=== PATIENT | male | born 1990 | race Asian ===

== ENCOUNTER 2017-04-16 13:30 | Emergency (ER) | payer OTHER ==
[2017-04-16 13:46] VITALS: BP 117/72; PULSE 95; TEMP 100.1; BMI 24.0
[2017-04-16] MEDS ORDERED: IBUPROFEN 600 MG TABLET (FP) PO ONE ×2 (14:14→14:24)
--- NOTE | 2017-04-16 14:37 | PDOC ---
History of Present Illness - General Chief Complaint: Cold Symptoms Stated Complaint: BODY ACHES, FEVER Time Seen by Provider: 04/16/17 14:14 - History of Present Illness Initial Comments: 04/16/17 14:36 CHIEF COMPLAINT: fever, body aches HISTORY OF PRESENT ILLNESS: 26 yo M with no PMH presents to fast track with fever x 2 days and body aches. Patient states he went for a run two days ago and when he returned home he suddenly felt body aches and "really tired." He states he has taken a few doses of Tylenol, last dose this afternoon around 1 pm. Patient denies any cough, sneezing, runny nose, sore throat, neck stiffness , vomiting, diarrhea. PAST MEDICAL HISTORY: Denies past medical history FAMILY HISTORY: Denies SOCIAL HISTORY: Denies tobacco, alcohol, illicit drug use. SURGICAL HISTORY: Denies ALLERGIES: No known drug allergies REVIEW OF SYSTEMS General/Constitutional: Denies fever or chills. Denies weakness, weight change. HEENT: Denies change in vision. Denies ear pain or discharge. Denies sore throat. Cardiovascular: Denies chest pain or shortness of breath. Respiratory: Denies cough, wheezing, or hemoptysis. Gastrointestinal: Denies nausea, vomiting, diarrhea or constipation. Denies rectal bleeding. Genitourinary: Denies dysuria, frequency, or change in urination. Musculoskeletal: Body aches to knees and lower back. Skin and breasts: Denies rash or easy bruising. Neurologic: Denies headache, vertigo, loss of consciousness, or loss of sensation. PHYSICAL EXAM General Appearance: Well-appearing, appropriately dressed. No apparent distress. HEENT: EOMI, PERRLA, normal ENT inspection, normal voice, TMs normal, pharynx normal. No conjunctival pallor. No photophobia, scleral icterus. Neck: Supple. Trachea midline. No tenderness, rigidity, carotid bruit, stridor , lymphadenopathy, or thyromegaly. Respiratory/Chest: Lungs CTAB. Cardiovascular: RRR. S1, S2. Gastrointestinal/Abdominal: Normal bowel sounds. Abdomen soft, non-distended. No tenderness or rebound tenderness. No organomegaly, pulsatile mass, guarding , hernia, hepatomegaly, splenomegaly. Musculoskeletal/Extremities: Normal inspection. FROM of all extremities, normal capillary refill. Pelvis Stable. No CVA tenderness. No tenderness to extremities, pedal edema, swelling, erythema or deformity. Integumentary: Appropriate color, dry, warm. 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 Fully oriented, alert. Appropriate mood/affect. Motor strength 5/5. No appreciable EOM palsy, facial droop or sensory deficit. 04/16/17 14:39 Past History - Past Medical History Allergies/Adverse Reactions: Allergies Allergy/AdvReac Type Severity Reaction Status Date / Time No Known Allergies Allergy Verified 04/16/17 13:46 Home Medications: Ambulatory Orders Naproxen [Naprosyn -] 500 mg PO BID #14 tablet 04/16/17 Other medical history: NONE - Psycho/Social/Smoking Cessation Hx Anxiety: No Suicidal Ideation: No Smoking History: Never smoked Hx Alcohol Use: No Drug/Substance Use Hx: No Substance Use Type: None *Physical Exam - Vital Signs Last Vital Signs Temp Pulse Resp BP Pulse Ox 100.1 F H 95 H 20 117/72 97 04/16/17 13:44 04/16/17 13:44 04/16/17 13:44 04/16/17 13:44 04/16/17 13:44 ED Treatment Course - Medications Given in the ED: ED Medications Discontinued Medications Generic Name Dose Route Start Last Admin Trade Name Rodrigoq PRN Reason Stop Dose Admin Ibuprofen 600 mg 04/16/17 14:14 04/16/17 14:29 Motrin - PO 04/16/17 14:15 Not Given ONCE ONE Medical Decision Making - Medical Decision Making 04/16/17 14:42 26 yo M with no PMH presents to fast track with fever x 2 days and body aches. Patient exam unremarkable. Likely viral syndrome. Advised patient to take medication as prescribed and follow up with PMD within the next week. Advised patient of signs and symptoms for return to ED. Patient verbalized understanding and agrees to plan. *DC/Admit/Observation/Transfer Diagnosis at time of Disposition: Viral syndrome - Discharge Dispostion Disposition: HOME Condition at time of disposition: Stable Admit: No - Prescriptions Prescriptions: Naproxen [Naprosyn -] 500 mg PO BID #14 tablet - Referrals Referrals: Archana Perez MD [Primary Care Provider] - - Patient Instructions Printed Discharge Instructions: DI for Viral Syndrome Additional Instructions: Please take medication as prescribed. Follow up with your primary care doctor next week. As discussed, if you experience fever that is unrelieved by Aleve, Motrin, or Tylenol, or you develop vomiting, diarrhea, stiffness of your neck, or any new or worsening symptoms, please return to the ER.
== END 2017-04-16 14:56 | disposition home or self-care (01) ==
LOC: JERFT 13:30
DX: B34.9 Viral infection, unspecified (principal)
CPT/HCPCS: 99281-25